=== PATIENT | female | born 1945 | race Caucasian/White ===

== ENCOUNTER → 2017-04-12 | Outpatient (CLI) | payer OTHER ==
[~2017-04-12] MED LIST: AMIO150P5 IV; AMIO200T2 PO; AMLO1CAP13 PO; AMOX-426 PO; APIX5TAB PO; CHOL100018 PO; CIPR-245 PO; CYAN-35 PO; FURO20TA4 PO; GADOBENATE DIMEGLUMINE 20 ML IV ONE; IRON-23 PO; IRON1CAP32 PO; LACT10SO PO; METO50TA18 PO; METOPROLOL; POTA-9 PO; SIMV10TA6 PO; VITAMIN D
== END | disposition home or self-care (01) ==
LOC: RAH 12:45
PROVIDERS: ATTEND Internal Medicine
DX: K86.89 Other specified diseases of pancreas (principal); R17 Unspecified jaundice
CPT/HCPCS: 74183; A9577

== ENCOUNTER 2017-04-24 07:12 | Inpatient (IN) | payer OTHER ==
[~2017-04-24] VITALS: Ht 167.6 cm; Wt 88.4 kg
[2017-04-24] VITALS (11 sets, daily range): BP systolic 138–168; BP diastolic 61–94
[~2017-04-24 07:12] MED LIST changes: -AMIO150P5 IV; -AMIO200T2 PO; -AMOX-426 PO; -CHOL100018 PO; -CIPR-245 PO; -CYAN-35 PO; -FURO20TA4 PO; -GADOBENATE DIMEGLUMINE 20 ML IV ONE; -IRON-23 PO; -IRON1CAP32 PO; -LACT10SO PO; -METO50TA18 PO; -POTA-9 PO; +SODIUM CHLORIDE 0.9% 1000ML 1,000 ML IV ONE
[2017-04-24] MEDS ORDERED: ISOVUE-370 50ML VIAL IV ONE (08:29)
[2017-04-24] MEDS ORDERED: AMIO150P5 IV (08:30)
[2017-04-24] MEDS ORDERED: IRON-23 PO (08:30)
[2017-04-24] MEDS ORDERED: LACT10SO PO (08:30)
[2017-04-24] MEDS ORDERED: CYAN-35 PO (08:30)
[2017-04-24] MEDS ORDERED: PROPOFOL 10 MG/ML 20ML VIAL IV ONE (09:11)
[2017-04-24 10:36] LABS: BASOPHILS % (AUTO) 1.2 % (0.0-5.0); EOSINOPHILS % (AUTO) 2.3 % (0.0-8.0); HEMATOCRIT 30.4 % (36-48); LYMPHOCYTES % (AUTO) 17.4 % (21.0-51.0); MEAN CORPUSCULAR HEMOGLOBIN 29.5 pg (27.0-33.0); MEAN CORPUSCULAR HGB CONC 32.6 g/dL (32.0-36.0); MEAN CORPUSCULAR VOLUME 90.6 fL (79-99); MONOCYTES % (AUTO) 7.2 % (3.0-13.0); NEUTROPHILS % (AUTO) 71.9 % (40.0-77.0); PLATELET COUNT (AUTO) 251 K/uL (130-400); RED BLOOD CELL COUNT(AUTO) 3.35 MIL/uL (4.00-5.50); WHITE BLOOD COUNT (AUTO) 5.5 K/uL (4.8-10.8)
[2017-04-24 10:46] LABS: INR 1.05 (0.85-1.15)
[2017-04-24 10:48] LABS: ALBUMIN 2.5 g/dL (3.5-5.0); BILIRUBIN,TOTAL 9.3 mg/dL (0.2-1.0); CREATININE 0.7 mg/dL (0.5-1.5); POTASSIUM 3.5 mmol/L (3.5-5.1)
[2017-04-24] MEDS ORDERED: SODIUM CHLORIDE 0.9% 1000ML 1,000 ML IV SCH (10:53)
[2017-04-24] MEDS ORDERED: LACTULOSE 20 GM/30 ML UDCUP PO PRN (11:00)
[2017-04-24] MEDS ORDERED: ACETAMINOPHEN 325 MG TAB PO PRN ×2 (11:00)
[2017-04-24] MEDS ORDERED: ONDANSETRON HCL 4 MG/2 ML VIAL IV PRN (11:00)
[2017-04-24] MEDS ORDERED: ACETAMINOPHEN-CODEINE 300/30MG TAB PO PRN ×2 (11:00)
[2017-04-24] MEDS ORDERED: GUAIFENESIN-DM 200/20 MG 10 ML PO PRN (11:00)
[2017-04-24] MEDS ORDERED: MORPHINE SULFATE 2 MG/ML 1ML SYG IV PRN (11:00)
[2017-04-24] MEDS ORDERED: HYDRALAZINE HCL 20 MG/ML VIAL IV PRN (11:00)
[2017-04-24] MEDS ORDERED: MORPHINE SULFATE 4 MG/1ML SYG IV PRN (11:00)
[2017-04-24] MEDS ORDERED: POTASSIUM CHLORIDE 20MEQ/100ML 100 ML IV PRN (14:00)
[2017-04-24] MEDS ORDERED: LIDOCAINE HCL-MPF 1% 2ML VIAL IVP PRN (14:00)
[2017-04-24] MEDS ORDERED: TRAMADOL HCL 50 MG TABLET PO PRN (14:00)
[2017-04-24] MEDS: FAMOTIDINE/PF 20 MG/2 ML VIAL IV SCH (21:30)
[2017-04-24] MEDS: METOPROLOL TARTRATE 25 MG TAB PO SCH (21:30)
[2017-04-24] MEDS: POTASSIUM CHLORIDE 20 MEQ ERTAB PO PRN (21:30)
[2017-04-25 00:01] LABS: APPEARANCE,URINE Cloudy (CLEAR); BILIRUBIN,URINE Moderate (NEGATIVE); COLOR,URINE Dark Yellow (YELLOW); GLUCOSE, URINE (UA) Negative (NEGATIVE); KETONES,URINE Negative (NEGATIVE); LEUKOCYTE ESTERASE ,URINE Large (NEGATIVE); NITRATE,URINE Positive (NEGATIVE); OCCULT BLOOD,URINE Negative (NEGATIVE); PH,URINE 5.5 (5.0-8.0); PROTEIN,URINE Negative (NEGATIVE); UROBILINOGEN,URINE 0.2 mg/dL (0.2-1.0)
[2017-04-25 00:16] LABS: AMORPHOUS SEDIMENT,UR Rare /LPF (None Seen); BACTERIA,URINE Moderate /HPF (None Seen); RBC,URINE 0-1 /HPF (0-1); SQUAMOUS EPITHELIAL CELL,UR Moderate /LPF (0-2)
[2017-04-25 04:00] VITALS: BP 145/79
[2017-04-25 04:44] LABS: HEMATOCRIT 27.5 % (36-48); MEAN CORPUSCULAR HEMOGLOBIN 30.6 pg (27.0-33.0); MEAN CORPUSCULAR HGB CONC 34.4 g/dL (32.0-36.0); MEAN CORPUSCULAR VOLUME 88.9 fL (79-99); NUCLEATED RED BLOOD CELLS 0.1 % (0.0-0.19); PLATELET COUNT (AUTO) 218 K/uL (130-400); RED CELL DISTRIBUTION WIDTH 16.7 % (11.0-15.5)
[2017-04-25 05:30] LABS: ALBUMIN 2.2 g/dL (3.5-5.0); BILIRUBIN,DIRECT 7.4 mg/dL (0.0-0.3); BILIRUBIN,TOTAL 8.9 mg/dL (0.2-1.0); CREATININE 0.7 mg/dL (0.5-1.5); POTASSIUM 3.4 mmol/L (3.5-5.1); TOTAL PROTEIN, SERUM 5.5 g/dL (6.0-8.3)
[2017-04-25 07:49] VITALS: BP 159/77
[2017-04-25] MEDS: LACTULOSE 20 GM/30 ML UDCUP PO SCH (08:00)
[2017-04-25] MEDS: METOPROLOL TARTRATE 25 MG TAB PO SCH ×2 (08:24→21:07)
[2017-04-25] MEDS: AMLODIPINE-BENAZEPRIL 5-10 MG PO SCH (08:38)
[2017-04-25] MEDS: IRON PLUS PO SCH (09:00)
[2017-04-25] MEDS ORDERED: CEFTRIAXONE 1GM/D5W 50ML 50 ML IV SCH (09:00)
[2017-04-25] MEDS: FAMOTIDINE/PF 20 MG/2 ML VIAL IV SCH ×2 (10:26→21:07)
[2017-04-25] MEDS: CEFTRIAXONE SODIUM 1 GM IVP SCH (10:26)
[2017-04-25 11:17] VITALS: BP 153/79
[2017-04-25] MEDS ORDERED: LIDOCAINE HCL 1% 20 ML VIAL ONE (14:30)
[2017-04-25] MEDS ORDERED: ISOVUE-300 100 ML VIAL IV ONE (14:30)
[2017-04-25] MEDS ORDERED: GLYCOPYRROLATE 0.2 MG/ML 5 ML VIAL ONE (14:44)
[2017-04-25] MEDS ORDERED: ROCURONIUM BROMIDE 10MG/1ML 5ML VL ONE (14:44)
[2017-04-25] MEDS ORDERED: LIDOCAINE PF 2% 5ML ABBOJECT ONE (14:44)
[2017-04-25] MEDS ORDERED: EPHEDRINE SULFATE 50 MG/ML AMPULE ONE (14:45)
[2017-04-25] MEDS ORDERED: PROPOFOL 10 MG/ML 20ML VIAL IV ONE (14:45)
[2017-04-25] MEDS ORDERED: MIDAZOLAM HCL 1 MG/ML 2ML VIAL ONE (14:45)
[2017-04-25] MEDS ORDERED: FENTANYL CITRATE PF 50 MCG/1 ML 2ML VIAL ONE (14:46)
[2017-04-25 16:15] VITALS: BP 134/72
[2017-04-25 19:41] VITALS: BP 154/78
[2017-04-25] MEDS ORDERED: DIATR MEGLU/DIATRIZOATE SODIUM 30 ML BOTTLE ONE (21:18)
[2017-04-25] MEDS ORDERED: IOPAMIDOL-370 100 ML VIAL IV ONE (22:59)
[2017-04-25 23:55] VITALS: BP 160/76
[2017-04-26] VITALS (22 sets, daily range): BP systolic 117–194; BP diastolic 61–91
[2017-04-26] MEDS: LACTULOSE 20 GM/30 ML UDCUP PO SCH (08:00)
[2017-04-26] MEDS: AMLODIPINE-BENAZEPRIL 5-10 MG PO SCH (08:33)
[2017-04-26] MEDS: CEFTRIAXONE SODIUM 1 GM IVP SCH (08:38)
[2017-04-26] MEDS: METOPROLOL TARTRATE 25 MG TAB PO SCH ×2 (08:38→22:20)
[2017-04-26] MEDS: FAMOTIDINE/PF 20 MG/2 ML VIAL IV SCH ×2 (08:38→22:19)
[2017-04-26] MEDS: IRON PLUS PO SCH (09:00)
[2017-04-26] MEDS ORDERED: LIDOCAINE HCL 1% 20 ML VIAL ONE (10:12)
[2017-04-26] MEDS ORDERED: ISOVUE-300 100 ML VIAL IV ONE (10:12)
[2017-04-26] MEDS ORDERED: ROCURONIUM BROMIDE 10MG/1ML 5ML VL ONE (11:26)
[2017-04-26] MEDS ORDERED: DEXAMETHASONE SOD PHOSPHATE 10MG/ML 1ML VIAL ONE (11:26)
[2017-04-26] MEDS ORDERED: FENTANYL CITRATE PF 50 MCG/1 ML 2ML VIAL ONE ×2 (11:27→11:57)
[2017-04-26] MEDS ORDERED: ONDANSETRON HCL MDV 20ML 2 MG/ML VIAL ONE (11:29)
[2017-04-26] MEDS ORDERED: LABETALOL HCL 5 MG/ML 20ML VIAL IV ONE (11:36)
[2017-04-26] MEDS: POTASSIUM CHLORIDE 10% ELIXIR 20 MEQ/15 ML UDCUP PO PRN ×2 (13:32→18:06)
[2017-04-26] MEDS: POTASSIUM CHLORIDE 20 MEQ ERTAB PO PRN (22:20)
[2017-04-27 04:50] VITALS: BP 161/83
[2017-04-27 05:20] LABS: HEMATOCRIT 30.1 % (36-48); MEAN CORPUSCULAR HEMOGLOBIN 30.1 pg (27.0-33.0); MEAN CORPUSCULAR VOLUME 91.2 fL (79-99); PLATELET COUNT (AUTO) 261 K/uL (130-400); RED CELL DISTRIBUTION WIDTH 16.9 % (11.0-15.5); WHITE BLOOD COUNT (AUTO) 5.8 K/uL (4.8-10.8)
[2017-04-27 05:44] LABS: ALBUMIN 2.4 g/dL (3.5-5.0); BILIRUBIN,TOTAL 5.3 mg/dL (0.2-1.0); CREATININE 0.9 mg/dL (0.5-1.5); POTASSIUM 3.6 mmol/L (3.5-5.1); TOTAL PROTEIN, SERUM 5.8 g/dL (6.0-8.3)
[2017-04-27 08:00] VITALS: BP 171/84
[2017-04-27] MEDS: LACTULOSE 20 GM/30 ML UDCUP PO SCH (08:00)
[2017-04-27] MEDS: IRON PLUS PO SCH (09:00)
[2017-04-27] MEDS: METOPROLOL TARTRATE 25 MG TAB PO SCH (09:12)
[2017-04-27] MEDS: POTASSIUM CHLORIDE 10% ELIXIR 20 MEQ/15 ML UDCUP PO PRN (09:12)
[2017-04-27] MEDS: AMLODIPINE-BENAZEPRIL 5-10 MG PO SCH (09:12)
[2017-04-27] MEDS: FAMOTIDINE/PF 20 MG/2 ML VIAL IV SCH (09:13)
[2017-04-27] MEDS: CEFTRIAXONE SODIUM 1 GM IVP SCH (09:13)
[2017-04-27 12:00] VITALS: BP 141/73
[2017-04-30] MEDS ORDERED: CIPR-245 PO (10:43)
[2017-04-30] MEDS ORDERED: APIX5TAB PO (10:43)
[2017-04-30] MEDS ORDERED: CHOL100018 PO (10:43)
[2017-04-30] MEDS ORDERED: AMIO200T2 PO (10:43)
[2017-04-30] MEDS ORDERED: IRON1CAP32 PO (10:43)
[2017-06-16] MEDS ORDERED: AMIO200T2 PO (08:26)
== END 2017-04-27 14:00 | disposition home or self-care (01) | DRG 375 ==
LOC: ENDO 07:12 → DAH 07:12 → ENDO 07:13 → DAHIP 07:13 → 4BH 12:45
PROVIDERS: ADMIT Internal Medicine; ATTEND Internal Medicine
PROC: 0DB98ZX Excision of Duodenum, Via Natural or Artificial Opening Endoscopic, Diagnostic (ICD-10-PCS; 2017-04-24)
PROC: 0F9930Z Drainage of Common Bile Duct with Drainage Device, Percutaneous Approach (ICD-10-PCS; principal; 2017-04-26)
PROC: BF111ZZ Fluoroscopy of Biliary and Pancreatic Ducts using Low Osmolar Contrast (ICD-10-PCS; 2017-04-26)
DX: C17.0 Malignant neoplasm of duodenum (principal); R17 Unspecified jaundice; K86.89 Other specified diseases of pancreas; I48.2 Chronic atrial fibrillation; K83.8 Other specified diseases of biliary tract; K26.9 Duodenal ulcer, unspecified as acute or chronic, without hemorrhage or perforation; N39.0 Urinary tract infection, site not specified; D64.9 Anemia, unspecified; E78.5 Hyperlipidemia, unspecified; K31.89 Other diseases of stomach and duodenum; I10 Essential (primary) hypertension; Z53.9 Procedure and treatment not carried out, unspecified reason; R93.3 Abnormal findings on diagnostic imaging of other parts of digestive tract; Z90.711 Acquired absence of uterus with remaining cervical stump; L53.9 Erythematous condition, unspecified
CPT/HCPCS: 10030; 36415; 43231; 47532; 47534; 74178; 76700; 80048; 80053; 80076; 81001; 84132; 85025; 85027; 85610; 87088; 87186; 88305; 93005; A4218; A4606; C1729; C1769; C1894; J0696; J1100; J1644; J2001; J2250; J2704; J3010; J3480; J3490; J7030; Q9963; Q9967

== ENCOUNTER 2017-05-01 07:47 | Day surgery (SDC) | payer OTHER ==
[2017-04-30 10:22] LABS: INR 1.08 (0.85-1.15); PARTIAL THROMBOPLASTIN TIME 27.4 SEC (26.3-35.5); PROTHROMBIN TIME 11.3 SEC (9.6-11.6)
[2017-04-30 10:24] VITALS: BP 115/68
[2017-05-01] VITALS (8 sets, daily range): BP systolic 118–151; BP diastolic 61–88
[~2017-05-01] VITALS: Ht 167.6 cm; Wt 86.5 kg
[~2017-05-01 07:47] MED LIST changes: +AMIO200T2 PO; +CHOL100018 PO; +CIPR-245 PO; +CYAN-35 PO; +IRON-23 PO; +IRON1CAP32 PO; -SODIUM CHLORIDE 0.9% 1000ML 1,000 ML IV ONE; -VITAMIN D
[2017-05-01] MEDS ORDERED: LIDOCAINE HCL 1% MDV 50ML VIAL ONE (08:53)
[2017-05-01] MEDS ORDERED: ISOVUE-300 100 ML VIAL IV ONE (08:57)
[2017-05-01] MEDS ORDERED: FENTANYL CITRATE PF 50 MCG/1 ML 2ML VIAL ONE (09:47)
[2017-05-01] MEDS ORDERED: MIDAZOLAM HCL 1 MG/ML 2ML VIAL ONE (09:47)
[2017-06-16] MEDS ORDERED: AMIO200T2 PO (08:26)
== END 2017-05-01 12:00 | disposition home or self-care (01) ==
LOC: DAH 07:47
PROVIDERS: ATTEND Internal Medicine
DX: C25.9 Malignant neoplasm of pancreas, unspecified (principal); I10 Essential (primary) hypertension; D64.9 Anemia, unspecified; E78.5 Hyperlipidemia, unspecified; Z90.710 Acquired absence of both cervix and uterus; Z98.890 Other specified postprocedural states; Z80.3 Family history of malignant neoplasm of breast; I48.2 Chronic atrial fibrillation
CPT/HCPCS: 36415; 47536; 85610; 85730; C1729; C1769 ×2; C1894; J2250; J3010; J3490; Q9967; 99152; 99153

== ENCOUNTER 2017-06-15 21:31 | Observation (INO) | payer OTHER ==
[~2017-06-15] VITALS: Ht 170.2 cm; Wt 83.1 kg
[~2017-06-15 21:31] MED LIST changes: -AMIO200T2 PO; +AMIO200T5 PO
[2017-06-15 22:07] LABS: APPEARANCE,URINE Clear (CLEAR); BILIRUBIN,URINE Negative (NEGATIVE); COLOR,URINE Dark Yellow (YELLOW); GLUCOSE, URINE (UA) Negative (NEGATIVE); KETONES,URINE Trace mg/dL (NEGATIVE); LEUKOCYTE ESTERASE ,URINE Negative (NEGATIVE); NITRATE,URINE Negative (NEGATIVE); OCCULT BLOOD,URINE Negative (NEGATIVE); PROTEIN,URINE Trace (NEGATIVE)
[2017-06-15 22:20] LABS: BACTERIA,URINE Rare /HPF (None Seen); RBC,URINE 0-1 /HPF (0-1)
[2017-06-15] MEDS ORDERED: ACETAMINOPHEN 325 MG TAB ONE (22:46)
[2017-06-15 22:58] LABS: EOSINOPHILS % (AUTO) 0.2 % (0.0-8.0); HEMATOCRIT 25.4 % (36-48); LYMPHOCYTES % (AUTO) 9.5 % (21.0-51.0); MEAN CORPUSCULAR HEMOGLOBIN 27.7 pg (27.0-33.0); MEAN CORPUSCULAR HGB CONC 33.7 g/dL (32.0-36.0); MEAN CORPUSCULAR VOLUME 82.2 fL (79-99); MONOCYTES % (AUTO) 0.6 % (3.0-13.0); NEUTROPHILS % (AUTO) 89.7 % (40.0-77.0); PLATELET COUNT (AUTO) 148 K/uL (130-400); RED BLOOD CELL COUNT(AUTO) 3.08 MIL/uL (4.00-5.50); RED CELL DISTRIBUTION WIDTH 14.6 % (11.0-15.5); WHITE BLOOD COUNT (AUTO) 7.4 K/uL (4.8-10.8)
[2017-06-15 23:02] LABS: INR 1.15 (0.85-1.15); PARTIAL THROMBOPLASTIN TIME 28.3 SEC (26.3-35.5)
[2017-06-15 23:06] LABS: B-TYPE NATRIURETIC PEPTIDE 158 pg/mL (0-100)
[2017-06-15 23:13] LABS: CARBON DIOXIDE 27 mmol/L (21-32); CHLORIDE 107 mmol/L (101-111); CREATININE 1.1 mg/dL (0.5-1.5); GLOMERULAR FILTR. RATE CALC 52 mL/min (>60); GLUCOSE,RANDOM 114 mg/dL (70-105); POTASSIUM 3.9 mmol/L (3.5-5.1); SODIUM SERUM 141 mmol/L (136-145); UREA NITROGEN, BLOOD 13 mg/dL (7-18)
[2017-06-15 23:36] LABS: ALANINE AMINOTRANSFERASE 77 U/L (12-78); ALBUMIN 2.3 g/dL (3.5-5.0); ASPARTATE AMINOTRANSFERASE 121 U/L (10-37); CREATINE KINASE MB < 0.5 ng/mL (0.5-3.6); CREATINE KINASE, TOTAL 20 U/L (21-232); MYOGLOBIN 19 ng/mL (10-92); TOTAL PROTEIN, SERUM 5.5 g/dL (6.0-8.3)
[2017-06-15 23:53] LABS: ERYTHROCYTE SEDIMENTATION RATE 92 MM/HR (0-15)
[2017-06-16] MEDS ORDERED: MAGNESIUM 2GM PREMIX 50ML 50 ML IV ONE (00:05)
[2017-06-16] MEDS ORDERED: ZOSYN 3.375GM+NS 50ML 50 ML IV ONE (00:17)
[2017-06-16] MEDS ORDERED: IOPAMIDOL-370 100 ML VIAL IV ONE (00:20)
[2017-06-16] MEDS ORDERED: VANCOMYCIN 1GM+NS 250ML 500 ML IV ONE (01:15)
[2017-06-16] MEDS ORDERED: SODIUM CHLORIDE 0.9% 1000ML 1,000 ML IV SCH (02:19)
[2017-06-16] MEDS ORDERED: POTASSIUM CHLORIDE 20 MEQ ERTAB PO PRN (02:30)
[2017-06-16] MEDS ORDERED: MORPHINE SULFATE 2 MG/ML 1ML SYG IV PRN (02:30)
[2017-06-16] MEDS ORDERED: ONDANSETRON HCL MDV 20ML 2 MG/ML VIAL IV PRN (02:30)
[2017-06-16] MEDS ORDERED: ACETAMINOPHEN-CODEINE 300/30MG TAB PO PRN ×2 (02:30)
[2017-06-16] MEDS ORDERED: POTASSIUM CHLORIDE 20MEQ/100ML 100 ML IV PRN (02:30)
[2017-06-16] MEDS ORDERED: DiphenhydrAMINE HCL 50 MG/ML VIAL IV PRN (02:30)
[2017-06-16] MEDS ORDERED: LIDOCAINE HCL-MPF 1% 2ML VIAL IVP PRN (02:30)
[2017-06-16] MEDS ORDERED: VANCOMYCIN 1GM+NS 250ML 250 ML IV SCH (02:30)
[2017-06-16] MEDS ORDERED: ALBUTEROL SULFATE 0.083% 2.5 MG/3 ML INH IH PRN (02:30)
[2017-06-16] MEDS ORDERED: MORPHINE SULFATE 4 MG/1ML SYG IV PRN ×2 (02:30→06:45)
[2017-06-16] MEDS ORDERED: ACETAMINOPHEN 325 MG TAB PO PRN ×2 (02:30)
[2017-06-16] MEDS ORDERED: LACTULOSE 20 GM/30 ML UDCUP PO PRN (02:30)
[2017-06-16] MEDS ORDERED: HYDRALAZINE HCL 20 MG/ML VIAL IV PRN (02:30)
[2017-06-16] MEDS ORDERED: POTASSIUM CHLORIDE 10% ELIXIR 20 MEQ/15 ML UDCUP PO PRN (02:30)
[2017-06-16] MEDS ORDERED: VANCOMYCIN PROTOCOL PER PHARMACY IV SCH (02:45)
[2017-06-16 03:45] VITALS: BP 135/65
[2017-06-16 06:15] LABS: BASOPHILS % (AUTO) 0.2 % (0.0-5.0); EOSINOPHILS % (AUTO) 0.3 % (0.0-8.0); LYMPHOCYTES % (AUTO) 11.9 % (21.0-51.0); MEAN CORPUSCULAR HEMOGLOBIN 27.7 pg (27.0-33.0); MEAN CORPUSCULAR HGB CONC 33.9 g/dL (32.0-36.0); MEAN CORPUSCULAR VOLUME 81.7 fL (79-99); MONOCYTES % (AUTO) 0.6 % (3.0-13.0); NUCLEATED RED BLOOD CELLS 0.1 % (0.0-0.19); PLATELET COUNT (AUTO) 127 K/uL (130-400); RED CELL DISTRIBUTION WIDTH 14.6 % (11.0-15.5); WHITE BLOOD COUNT (AUTO) 5.6 K/uL (4.8-10.8)
[2017-06-16 06:23] LABS: CREATININE 0.9 mg/dL (0.5-1.5); POTASSIUM 3.6 mmol/L (3.5-5.1)
[2017-06-16] MEDS ORDERED: COMPOUND IV REFRIGERATED 1 EACH IVSOLN MISC PRN (07:00)
[2017-06-16 08:00] VITALS: BP 127/92
[2017-06-16] MEDS ORDERED: IRON1CAP32 PO (08:26)
[2017-06-16] MEDS ORDERED: AMIO200T5 PO (08:26)
[2017-06-16] MEDS ORDERED: POTA-9 PO (08:26)
[2017-06-16] MEDS ORDERED: METO50TA18 PO (08:26)
[2017-06-16] MEDS ORDERED: FURO20TA4 PO (08:26)
[2017-06-16] MEDS ORDERED: METOPROLOL TARTRATE 1 MG/ML 5ML VIAL IV SCH ×2 (08:42→09:30)
[2017-06-16] MEDS ORDERED: CEFTRIAXONE 1GM/D5W 50ML 50 ML IV SCH (09:30)
[2017-06-16] MEDS: FAMOTIDINE 20MG TAB 20 MG TAB PO SCH ×2 (09:41→19:56)
[2017-06-16 12:01] VITALS: BP 133/78
[2017-06-16] MEDS: CEFTRIAXONE SODIUM 1 GM IVP SCH (12:23)
[2017-06-16 13:20] VITALS: BP 119/82
[2017-06-16] MEDS ORDERED: AMIODARONE HCL 200 MG TABLET PO SCH (13:30)
[2017-06-16] MEDS: METOPROLOL TARTRATE 50 MG TAB PO SCH ×2 (13:51→19:57)
[2017-06-16 16:37] VITALS: BP 142/73
[2017-06-16] MEDS ORDERED: AMIODARONE HCL 200 MG TABLET PO ONE (19:56)
[2017-06-16] MEDS: AMIODARONE HCL 200 MG TABLET PO SCH (19:57)
[2017-06-16] MEDS: APIXABAN 5 MG TABLET PO SCH (19:57)
[2017-06-16 20:00] VITALS: BP 136/77
[2017-06-16] MEDS ORDERED: METOPROLOL TARTRATE 50 MG TAB PO SCH (21:00)
[2017-06-16] MEDS ORDERED: ATORVASTATIN CALCIUM 10 MG TABLET PO SCH (21:00)
[2017-06-16] MEDS ORDERED: VANCOMYCIN 750MG + NS 250 ML IV SCH ×2 (21:00)
[2017-06-17 00:22] VITALS: BP 144/70
[2017-06-17 03:57] VITALS: BP 148/68
[2017-06-17 04:12] LABS: BASOPHILS % (AUTO) 0.6 % (0.0-5.0); HEMATOCRIT 22.3 % (36-48); MEAN CORPUSCULAR HGB CONC 32.9 g/dL (32.0-36.0); MEAN CORPUSCULAR VOLUME 81.9 fL (79-99); MONOCYTES % (AUTO) 1.4 % (3.0-13.0); PLATELET COUNT (AUTO) 165 K/uL (130-400); RED BLOOD CELL COUNT(AUTO) 2.72 MIL/uL (4.00-5.50); RED CELL DISTRIBUTION WIDTH 14.7 % (11.0-15.5); WHITE BLOOD COUNT (AUTO) 3.5 K/uL (4.8-10.8)
[2017-06-17 04:18] LABS: CREATININE 0.6 mg/dL (0.5-1.5); POTASSIUM 3.3 mmol/L (3.5-5.1)
[2017-06-17 07:00] VITALS: BP 150/70
[2017-06-17] MEDS: APIXABAN 5 MG TABLET PO SCH (08:38)
[2017-06-17] MEDS: AMIODARONE HCL 200 MG TABLET PO SCH (08:38)
[2017-06-17] MEDS: METOPROLOL TARTRATE 50 MG TAB PO SCH (08:38)
[2017-06-17] MEDS: FAMOTIDINE 20MG TAB 20 MG TAB PO SCH (08:39)
[2017-06-17] MEDS: CEFTRIAXONE SODIUM 1 GM IVP SCH (08:45)
[2017-06-17] MEDS ORDERED: AMOX-426 PO (08:57)
[2017-06-17] MEDS ORDERED: **HM**(Cholecalciferol (Vitamin D3) (Vitamin D3) 1,000 UNIT) PO SCH (09:00)
[2017-06-17] MEDS ORDERED: FUROSEMIDE 20 MG TABLET PO SCH (09:00)
[2017-06-17] MEDS ORDERED: POTASSIUM CHLORIDE 10 MEQ/TAB.SA PO SCH (09:00)
[2017-06-17] MEDS ORDERED: AMIODARONE HCL 200 MG TABLET PO SCH (09:00)
[2017-06-17] MEDS ORDERED: FE FUMARATE/FA/MV, MIN COMB#15 1 TAB PO SCH (09:00)
[2017-06-17] MEDS ORDERED: AMLODIPINE-BENAZEPRIL 5-10 MG PO SCH (09:00)
[2017-06-17 11:31] VITALS: BP 151/71
== END 2017-06-17 15:02 | disposition home or self-care (01) ==
LOC: EDH 21:31 → EDHIP 06-16 01:28 → 3AH 06-16 03:50 → 2AH 06-16 12:48
PROVIDERS: ADMIT Family Medicine; ATTEND Family Medicine
DX: L03.116 Cellulitis of left lower limb (principal); C25.9 Malignant neoplasm of pancreas, unspecified; I10 Essential (primary) hypertension; E78.5 Hyperlipidemia, unspecified; I48.0 Paroxysmal atrial fibrillation; J90 Pleural effusion, not elsewhere classified; R79.1 Abnormal coagulation profile; Z85.07 Personal history of malignant neoplasm of pancreas
CPT/HCPCS: 36415 ×3; 71045; 71275; 80048 ×2; 80053; 81001; 82550; 82553; 83605; 83874; 83880 ×2; 84484; 85025 ×3; 85378; 85610; 85651; 85730; 86140; 87040 ×2; 87088; 93005 ×2; 93970; 94664; 96374; 96375; 96376 ×2; 99285; A4218; A4510; G0378 ×38; J0696 ×2; J2543; J3370; J3475; J3490 ×2; J7030; Q9967

== ENCOUNTER 2018-03-19 07:22 | Day surgery (SDC) | payer OTHER ==
[~2018-03-19] VITALS: Ht 165.1 cm; Wt 72.6 kg
[2018-03-19] VITALS (11 sets, daily range): BP systolic 101–144; BP diastolic 59–76
[~2018-03-19 07:22] MED LIST changes: +BUPIVACAINE/EPI/PF 0.25% 50 ML VIAL IJ SCH; +BUPIVACAINE/PF 0.25% 10ML VIAL IJ SCH; +BUPIVACAINE/PF 0.25% 50ML VIAL IJ SCH; -CIPR-245 PO; -CYAN-35 PO; +ETHYL ALCOHOL 5 ML VIAL IJ SCH; -IRON-23 PO; +METO50TA18 PO; -METOPROLOL; +POTA-9 PO; +SODIUM CHLORIDE 0.9% 1000ML 1,000 ML IV ONE
[2018-03-19] MEDS ORDERED: PROPOFOL 1000 MG/100 ML 100 ML IV ONE (08:45)
--- NOTE | 2018-03-19 09:05 | NUR ---
ASSESSMENT RECEIVED PT. ASLEEP. ABD SOFT TO TOUCH. BS X4 PRESENT.
== END 2018-03-19 10:45 | disposition home or self-care (01) ==
LOC: DAH 07:22 → ENDO 07:22
PROVIDERS: ATTEND Internal Medicine
DX: C25.9 Malignant neoplasm of pancreas, unspecified (principal); I10 Essential (primary) hypertension; D64.9 Anemia, unspecified; E78.5 Hyperlipidemia, unspecified; Z98.890 Other specified postprocedural states; Z90.710 Acquired absence of both cervix and uterus; Z79.899 Other long term (current) drug therapy; Z80.3 Family history of malignant neoplasm of breast; I48.2 Chronic atrial fibrillation; R97.0 Elevated carcinoembryonic antigen [CEA]
CPT/HCPCS: 43253; 93005; A4215; A4606; J2704; J3490; J7030; 43232